=== PATIENT | female | born 1995 | race Caucasian/White ===

== ENCOUNTER → 2018-10-27 | Outpatient (CLI) | payer BC ==
--- NOTE | 2018-10-27 13:48 | Diagnostic Imaging Report ---
PROCEDURE: CT urinary tract, rule out kidney stone. TECHNIQUE: Multiple contiguous axial images were obtained through the abdomen and pelvis without the use of intravenous contrast. INDICATION: Abdominal pain. Hematuria. COMPARISON: None. FINDINGS: 4 mm renal stone in the left ureteropelvic junction resulting in moderate left hydronephrosis. No other renal or ureteral stones. No right hydronephrosis. Lung bases are clear. The liver, gallbladder, pancreas, spleen, adrenals, right kidney, right ureter, unopacified bladder and appendix are negative on this noncontrast exam. The reproductive structures are grossly unremarkable. No free intraperitoneal air or fluid. No lymphadenopathy. No evidence of bowel obstruction. No acute osseous findings. IMPRESSION: 4 mm renal stone in the left ureteropelvic junction resulting in moderate left hydronephrosis. Findings discussed with PAPO Nicholas at 1:45 p.m. on 10/27/2018. Dictated by: Dictated on workstation # [id number]
== END ==
LOC: RAD 13:02
PROVIDERS: ATTEND Nurse Practitioner Family
DX: N13.2 Hydronephrosis with renal and ureteral calculous obstruction (principal)
CPT/HCPCS: 74176

== ENCOUNTER → 2018-10-28 | Outpatient (CLI) | payer BC ==
--- NOTE | 2018-10-28 16:07 | Diagnostic Imaging Report ---
EXAMINATION: Supine abdomen at 2:40 p.m. INDICATION: Abdominal pain. FINDINGS: The previous CT abdomen/pelvis exam of 10/27/2018 did note a 4 mm calculus at the ureteropelvic junction on the left. This did result in moderate hydronephrosis of the left kidney. On this exam, the obstructive calculus does not seem to have changed significantly in position. The calculus still seems to lie at the level of the L3 vertebral body. There has been a considerable increase in the amount of gas in both the large and small bowel since the prior exam. This appearance is nonspecific but may be related to an ileus secondary to the obstruction related to the calculus. There is no mass or organomegaly appreciated. The osseous structures are intact. IMPRESSION: 1. The obstructive calculus involving the ureteropelvic junction of left kidney seen previously is again evident and does not appear to have changed significantly. 2. The appearance of the abdomen itself has worsened as a considerable amount of gas has developed throughout both the large and small bowel. This appearance is nonspecific but may be related to an ileus. 3. These results were discussed with Catherine Akhtar APRN. Dictated by: Dictated on workstation # [id number]
== END ==
LOC: RAD 14:39
PROVIDERS: ATTEND Nurse Practitioner Family
DX: N13.2 Hydronephrosis with renal and ureteral calculous obstruction (principal)
CPT/HCPCS: 74018

== ENCOUNTER → 2018-11-03 | Outpatient (CLI) | payer BC ==
[~2018-11-03] MED LIST: NORG1TAB15 PO
--- NOTE | 2018-11-03 13:55 | Diagnostic Imaging Report ---
EXAMINATION: Supine abdomen at 12:15h. INDICATION: Left nephrolithiasis The previous exam of 10/28/2018 noted a 4 MM calculus at the ureteropelvic junction on the left. On this exam the calculus is again identified and unchanged in position. There is no other pathological calcification seen. There has been a decrease in the amount of gas in the small bowel in the interval since the prior exam. There has also been some decrease in the amount of gas in the colon. There is still no mass or organomegaly appreciated. IMPRESSION: 1. The nonobstructive calculus overlying the left midabdomen seen previously is again evident and no different. 2. There has been a decrease in the amount of gas in both the large and small bowel since the prior study. Dictated by: Dictated on workstation # [id number]
== END ==
LOC: RAD 12:44
PROVIDERS: ATTEND Urology
DX: N20.2 Calculus of kidney with calculus of ureter (principal)
CPT/HCPCS: 74018

== ENCOUNTER 2018-11-04 05:40 | Outpatient (CLI) | payer BC ==
[~2018-11-04] VITALS: Ht 177.8 cm; Wt 81.6 kg
[2018-11-04] MEDS ORDERED: NORG1TAB15 PO (11:33)
[2018-11-05] MEDS ORDERED: PHEN-640 PO (13:29)
[2018-11-05] MEDS ORDERED: NITR-65 PO (13:29)
== END 2018-11-04 11:37 | disposition home or self-care (01) ==
LOC: PREOP 05:40
PROVIDERS: ATTEND Urology
DX: Z01.818 Encounter for other preprocedural examination (principal)

== ENCOUNTER 2018-11-05 10:30 | Day surgery (SDC) | payer BC ==
[~2018-11-05] VITALS: Ht 177.8 cm; Wt 81.6 kg
[2018-11-05] MEDS ORDERED: fentaNYL INJECTION 100 MCG/2 ML AMP ONE (10:46)
[2018-11-05] MEDS ORDERED: MIDAZOLAM 2 MG/2 ML (VERSED) VIAL ONE (10:47)
[2018-11-05] MEDS ORDERED: LACTATED RINGERS 1,000 ML IV PRN (10:51)
[2018-11-05] MEDS ORDERED: cefTRIAXone FOR IV USE 1,000 MG in WATER (STERILE) FOR INJECTION 10 ML IV ONE (11:00)
--- NOTE | 2018-11-05 11:10 | Diagnostic Imaging Report ---
INDICATION: Left ureteral calculus. TIME OF EXAM: 10:48 a.m. Correlation is made with prior study from 11/03/2018. FINDINGS: 3-4 mm calculus in the left abdomen projected just below the left transverse process of L3 is in unchanged position. It is likely in the mid left ureter. No other radiopaque urinary tract calculi are seen. The bowel gas pattern is unremarkable. IMPRESSION: Unchanged position of left ureteral calculus when compared with exam two days earlier. Dictated by: Dictated on workstation # [id number]
[2018-11-05] MEDS ORDERED: cefTRIAXone 1,000 MG IV (ROCEPHIN) VIAL ONE (11:11)
[2018-11-05] MEDS ORDERED: WATER (STERILE) FOR INJECTION 10 ML ONE (11:12)
--- NOTE | 2018-11-05 11:13 | Progress Note-Pre Operative ---
Pre-Operative Progress Note H&P Reviewed The H&P was reviewed, patient examined and no changes noted. Date Seen by Provider: Nov 05, 2018 Time Seen by Provider: 11:13 Date H&P Reviewed: Nov 05, 2018 Time H&P Reviewed: 11:13 Pre-Operative Diagnosis: LT PROXIMAL URETERAL STONE MICHELLE LAUREANO MD Nov 05, 2018 11:13
--- NOTE | 2018-11-05 11:14 | Progress Note-Post Operative ---
Post-Operative Progess Note Surgeon (s)/Certified Bench Jeweler Technician (s) Surgeon MICHELLE LAUREANO MD Certified Bench Jeweler Technician: NONE Pre-Operative Diagnosis LT PROXIMAL URETERAL STONE Post-Operative Diagnosis SAME Procedure & Operative Findings Date of Procedure 11/05/18 Procedure Performed/Findings LT URETEROSCOPY WITH STONE LITHOTRIPSY Anesthesia Type GENERAL Estimated Blood Loss Estimated blood loss (mL): NONE Specimens/Packing Specimens Removed NONE Packing: NONE MICHELLE LAUREANO MD Nov 05, 2018 11:14
[2018-11-05 11:21] VITALS: BP 108/72
[2018-11-05] MEDS ORDERED: ONDANSETRON 4 MG/2 ML (SDV) Z0FRAN ONE ×2 (11:23)
[2018-11-05] MEDS ORDERED: LIDOCAINE PF 2% 5 ML (XYLOCAINE) VIAL ONE (11:23)
[2018-11-05] MEDS ORDERED: DEXAMETHASONE 10 MG/ML (DECADRON) 1 ML VIAL ONE (11:23)
[2018-11-05] MEDS ORDERED: proPOfol 200 MG/20 ML (DIPRIVAN) VIAL IV ONE (11:23)
[2018-11-05] MEDS ORDERED: SEVOFLURANE (ULTANE) 15 ML INHAL SOLN ONE ×2 (11:23)
--- NOTE | 2018-11-05 11:53 | Discharge Inst-Urology ---
Discharge Inst-Urology Discharge Medications New, Converted, or Re-newed RX: RX on Chart Patient Instructions/Follow Up Plan Please make appointment to been seen in office in 2 weeks. Increase oral fluids for 48 hours and then as needed. Diet and Activity as tolerated. If questions or concerns contact your physician Or seek help at emergency department. MICHELLE LAUREANO MD Nov 05, 2018 11:53
[2018-11-05 12:45] VITALS: BP 112/74
[2018-11-05 13:15] VITALS: BP 114/86
[2018-11-05] MEDS ORDERED: NITR-65 PO (13:29)
[2018-11-05] MEDS ORDERED: PHEN-640 PO (13:29)
[2018-11-05 13:45] VITALS: BP 114/86
[2018-11-05 13:50] VITALS: BP 114/86
--- NOTE | 2018-11-05 15:57 | OPERATIVE REPORT ---
DATE OF SERVICE: 11/05/2018 PREOPERATIVE DIAGNOSIS: Left proximal ureteral stone. POSTOPERATIVE DIAGNOSES: 1. Left proximal ureteral stone. 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 OPERATION PERFORMED: Left ureteroscopy with stone lithotripsy. SURGEON: Aime Laureano MD ANESTHESIA: General. COMPLICATIONS: None. DESCRIPTION OF PROCEDURE: Under satisfactory general anesthesia, the patient in the lithotomy position, genitalia were prepped and draped in usual sterile fashion. The cystoscope was introduced under vision. The cystoscopy was negative except sluggish efflux on the left side. Using a foroblique lens, I dilated the left ureteral orifice intramural portion to accommodate a 6.9 [place] semi-rigid ureteroscope, went up to a level where I could see two hole ureters, which showed probably a duplicated system. I went on the lateral one locally enough, the stone was right there. I went ahead and broke it up with the lithoclast completely. The fragments were falling down. I went above it. There were no further stones or fragments. I withdrew the ureteroscope, reinserted the cystoscope to empty the bladder. The patient tolerated the procedure and anesthesia well and was sent to recovery room in stable condition. We will see her back in two weeks at the office after spring and we will do a stone risk profile to complete the workup for stone prevention. This was fully explained to her mother. Job ID: [id number] DocumentID: [id number] Dictated Date: 11/05/2018 11:55:24 Continuous Pillowcase Cutter Date: 11/05/2018 15:57:19 Dictated By: AIME LAUREANO MD
--- NOTE | 2018-11-05 16:17 | Anesthesia-General Post-Op ---
General Patient Condition Mental Status/LOC: Same as Preop Cardiovascular: Satisfactory Nausea/Vomiting: Absent Respiratory: Satisfactory Pain: Controlled Complications: Absent Post Op Complications Complications None Follow Up Care/Instructions Patient Instructions None needed. Anesthesia/Patient Condition Patient Condition Patient is doing well, no complaints, stable vital signs, no apparent adverse anesthesia problems. No complications reported per nursing. D/C [place] per [facility] [place]: Yes ED CANNON CRNA Nov 05, 2018 16:17
== END 2018-11-05 13:50 | disposition home or self-care (01) ==
LOC: SDC 10:30
PROVIDERS: ATTEND Urology
DX: N20.1 Calculus of ureter (principal); Z11.2 Encounter for screening for other bacterial diseases; Z88.0 Allergy status to penicillin; Z88.1 Allergy status to other antibiotic agents
CPT/HCPCS: 74018; 84703; 87081